=== PATIENT | female | born 1970 ===

== ENCOUNTER 2020-07-17 14:56 | Outpatient (CLI) | payer OTHER ==
--- NOTE | 2020-07-17 15:41 | Mammography Report ---
DIGITAL DIAGNOSTIC MAMMOGRAM WITH CAD CONVENTIONAL, 07/17/2020 CLINICAL INFORMATION / INDICATION: Limited history due to lack of patient knowledge of prior breast f indings and inability to speak Romansh. History of nodules in breasts with prior benign left breast b iopsy. TECHNIQUE: Digital bilateral mammographic imaging was performed. This examination was interpreted with the benefit of Computer-aided Detection analysis. COMPARISON: None available. FINDINGS: Breast Density: The breasts are heterogeneously dense, which may obscure small masses. No dominant mass, suspicious calcifications or architectural distortion in either breast. A biopsy clip is seen in the 6:00 position posterior depth of the left breast. IMPRESSION: No mammographic evidence of malignancy. Follow up recommendation: Routine yearly BI-RADS Category 2: Benign. A "normal" or negative report should not discourage follow up or biopsy of a clinically significant f inding. A written summary of these findings will be mailed to the patient. The patient will be entered into a mammography reporting system which will generate a reminder letter for the patient's next appointmen t at the appropriate interval. According to the [employer], yearly mammograms are recommended starting at age 40 and continuing as long as a woman is in good health. Breast MRI is recommended for women with an lizzy roximately 20-25% or greater lifetime risk of breast cancer, including women with a strong family his tory of breast or ovarian cancer and women who have been treated for Hodgkin's disease. Signer Name: Desmond Raygoza MD Signed: 07/17/2020 3:37 PM Workstation Name: [email or web address]
--- NOTE | 2020-07-17 16:31 | Ultrasound Report ---
ULTRASOUND BREAST BILATERAL COMPLETE, 07/17/2020 CLINICAL INFORMATION / INDICATION: History of breast nodules, side unspecified. History of benign lef t breast biopsy. TECHNIQUE: Complete sonographic evaluation of all 4 quadrants and retroareolar region was performed. COMPARISON: Bilateral diagnostic mammogram performed today. FINDINGS: Right breast: Mildly dilated ducts are seen in the 12:00 position 5 cm from the nipple without a dist inct intraductal lesion. No other significant abnormality. Left breast: Multiple cysts of varying complexity are present throughout the left breast. A dominant cyst is seen in the 12:00 position 4 cm from the nipple measuring 6 x 4 x 6 mm. There are multiple hy poechoic solid nodules throughout the breast. A entry level sales representative nodule in the 2:00 position 6 cm from the nipple measures 8 x 4 x 6 mm. No other significant abnormality is noted. IMPRESSION: No sonographic evidence of malignancy in the right breast. Multiple cysts and nodules in the left breast as above are favored to be benign. A follow-up complete left breast ultrasound in 6 m [facility] is recommended. Follow up recommendation: Ultrasound BI-RADS Category 3: Probably Benign. Followup in 6 months. A normal or "negative" report should not preclude biopsy or follow-up of a clinically suspicious find ing. Signer Name: Desmond Raygoza MD Signed: 07/17/2020 4:27 PM Workstation Name: [id number]
== END 2020-07-17 14:57 | disposition home or self-care (01) ==
LOC: SPVWC 14:56
PROVIDERS: ATTEND Surgery
DX: N60.02 Solitary cyst of left breast (principal)
CPT/HCPCS: 77066

== ENCOUNTER 2020-09-17 11:07 | Outpatient (CLI) | payer OTHER ==
[2020-09-17 11:43] LABS: Basophils # (Auto) 0.1 K/mm3 (0.0-0.1); Eosinophils # (Auto) 0.1 K/mm3 (0.0-0.4); Eosinophils % (Auto) 2.1 % (0.0-4.3); Hematocrit 36.9 % (30.3-42.9); Hemoglobin 12.9 gm/dl (10.1-14.3); Lymphocytes # (Auto) 2.2 K/mm3 (1.2-5.4); Lymphocytes % (Auto) 35.5 % (13.4-35.0); Mean Corpuscular HGB Conc 35 % (30-34); Mean Corpuscular Volume 90 fl (79-97); Monocytes # (Auto) 0.4 K/mm3 (0.0-0.8); Monocytes % (Auto) 6.4 % (0.0-7.3); Platelet Count 250 K/mm3 (140-440); Red Blood Count 4.11 M/mm3 (3.65-5.03); Red Cell Distribution Width 12.4 % (13.2-15.2)
[2020-09-17 12:07] LABS: Alanine Aminotransferase 31 units/L (7-56); Albumin 4.2 g/dL (3.9-5); Blood Urea Nitrogen 12 mg/dL (7-17); Calcium 9.4 mg/dL (8.4-10.2); HDL Cholesterol 55 mg/dL (40-59); Hemolysis Index 2; LDL Cholesterol,Direct 123 mg/dL (50-130)
[2020-09-17 12:11] LABS: BUN/Creatinine Ratio 17
== END 2020-09-17 11:08 | disposition home or self-care (01) ==
LOC: LAB 11:07
PROVIDERS: ATTEND Internal Medicine
DX: Z13.29 Encounter for screening for other suspected endocrine disorder (principal); Z00.00 Encounter for general adult medical examination without abnormal findings; E78.5 Hyperlipidemia, unspecified; E55.9 Vitamin D deficiency, unspecified; R73.03 Prediabetes
CPT/HCPCS: 36415; 80053; 80061; 82306; 83036; 84443; 85025

== ENCOUNTER 2021-01-24 14:51 | Outpatient (CLI) | payer OTHER ==
--- NOTE | 2021-01-24 16:36 | Ultrasound Report ---
ULTRASOUND BREAST LEFT LIMITED, 01/24/2021 CLINICAL INFORMATION / INDICATION: MAMMOGRAPHIC MICROCALCIFICATION R92.1. TECHNIQUE: Targeted ultrasound evaluation was performed of the area of interest. COMPARISON: Recent mammogram and ultrasound 07/17/2020 FINDINGS: Numerous scattered hypoechoic nodules/masses are seen throughout the entire breast, without obvious s ignificant interval change from the last ultrasound exam. No new findings are identified. The numerou s hypoechoic nodules identified are most likely due to extensive fibrocystic change. IMPRESSION: Probably benign findings. Numerous hypoechoic masses throughout the left breast are gross ly stable. I would recommend an additional 6 month follow-up left breast ultrasound, which will coinc yoselyn when patient is due for her next annual mammogram. Follow up recommendation: Short term follow up in 6 months. BI-RADS Category 3: Probably Benign. Followup in 6 months. A normal or "negative" report should not preclude biopsy or follow-up of a clinically suspicious find ing. Signer Name: Becky El MD Signed: 01/24/2021 4:31 PM Workstation Name: [id number]
== END 2021-01-24 14:52 | disposition home or self-care (01) ==
LOC: SPVWC 14:51
PROVIDERS: ATTEND Surgery
DX: R92.1 Mammographic calcification found on diagnostic imaging of breast (principal)

== ENCOUNTER 2021-08-29 14:32 | Outpatient (CLI) | payer OTHER | END 2021-08-29 14:33 | disposition home or self-care (01) | LOC: SPVWC 14:32 | PROVIDERS: ATTEND Surgery | DX: Z12.31 Encounter for screening mammogram for malignant neoplasm of breast (principal) | CPT/HCPCS: 77067 ==